=== PATIENT | male | born 1950 ===

== ENCOUNTER 2022-10-08 21:32 | Inpatient (IN) ==
[2022-10-09] MEDS ORDERED: Vancomycin 1,000 MG in NS 0.9% 250 ml 250 ML IVPB ONE (02:39)
[2022-10-09 03:00] LABS: Hematocrit 40.5 % (38-53); Hemoglobin 13.6 g/dL (13.2-16.3); Mean Corpuscular Hemoglobin 29.9 pg (27-33); Mean Corpuscular Hgb Conc 33.6 g/dL (31-36); Mean Platelet Volume 9.6 fL (7.5-11.2); Platelet Count 464 10^3/uL (150-450); Red Blood Count 4.55 10^6/uL (4.06-5.63); Red Cell Distribution Width 19.1 % (12-17); White Blood Count 16.1 10^3/uL (3.6-10.2)
[2022-10-09] MEDS ORDERED: Vancomycin per Pharmacy 1 EA NOTE FOLLOW UP SCH (03:00)
[2022-10-09] MEDS ORDERED: Dextrose 50% Syringe 50 ml 25 GM/50 ML SYRINGE IV PUSH PRN (03:10)
[2022-10-09] MEDS ORDERED: Heparin DRIP 25,000 UNITS BAG 25,000 UNITS/500 ML BAG IV SCH ×2 (03:15→14:30)
[2022-10-09 03:18] LABS: Albumin 3.2 g/dL (3.2-5.2); Albumin/Globulin Ratio 1.5 (1-3); Calcium 8.6 mg/dL (8.6-10.3); Creatinine, Serum 0.91 mg/dL (0.67-1.17); Globulin 2.1 g/dL (2-4); Magnesium 1.5 mg/dL (1.9-2.7); Potassium 3.7 mmol/L (3.5-5.0); Total Bilirubin 0.5 mg/dL (0.2-1.0); Total Protein 5.3 g/dL (6.4-8.9); eGFR CKD-EPI 89.5 (>60)
[2022-10-09 03:24] LABS: Activated Partial Thrombo Time 36.8 seconds (26.0-38.0); INR 1.44 (0.88-1.18)
[2022-10-09 03:33] LABS: ABS Basophils 0.1 10^3/uL (0.0-0.1); ABS Eosinophils 0.8 10^3/uL (0.0-0.5); ABS Lymphocytes 0.8 10^3/uL (1.0-4.8); ABS Monocytes 0.8 10^3/uL (0.0-1.1); ABS Neutrophils 13.6 10^3/uL (1.5-7.6); Anisocytosis 1+; Eosinophil % 5.1 %; Lymphocyte % 4.7 %; Platelet Morphology Large
[2022-10-09] MEDS: cefTRIAXone 1 gm/50 mL D5W 1 GM/50 ML BAG IV SCH (03:58)
[2022-10-09] MEDS ORDERED: Heparin 5000 UNITS/ML 1 mL VIAL IV SCH ×2 (04:00→15:00)
[2022-10-09] MEDS ORDERED: Vancomycin 1500 MG IV - x ONCE IVPB ONE (04:00)
[2022-10-09 04:16] LABS: C Reactive Protein 28.52 mg/L (<8.01)
[2022-10-09] MEDS ORDERED: Magnesium Sulfate IV 3 GM in NS 0.9% 100 ml BAG 100 ML IVPB ONE (05:44)
[2022-10-09] MEDS: DULoxetine DR 60 mg CAP PO SCH (10:47)
[2022-10-09] MEDS: Vancomycin 1,250 MG in NS 0.9% 250 ml 250 ML IVPB SCH (13:50)
[2022-10-09 15:12] LABS: Hematocrit 41.2 % (38-53); Hemoglobin 13.8 g/dL (13.2-16.3); Mean Corpuscular Hgb Conc 33.5 g/dL (31-36); Mean Corpuscular Volume 89.5 fL (80-97); Mean Platelet Volume 9.3 fL (7.5-11.2); Platelet Count 492 10^3/uL (150-450); Red Cell Distribution Width 19.9 % (12-17); White Blood Count 16.7 10^3/uL (3.6-10.2)
[2022-10-09 15:29] LABS: Creatinine, Serum 0.72 mg/dL (0.67-1.17); eGFR CKD-EPI 97.1 (>60)
[2022-10-09 16:18] LABS: ABS Eosinophils 0.8 10^3/uL (0.0-0.5); ABS Lymphocytes 0.7 10^3/uL (1.0-4.8); ABS Monocytes 1.1 10^3/uL (0.0-1.1); ABS Neutrophils 14.2 10^3/uL (1.5-7.6); Eosinophil % 4.9 %; Lymphocyte % 3.9 %
[2022-10-10] MEDS: Vancomycin 1,250 MG in NS 0.9% 250 ml 250 ML IVPB SCH ×2 (00:01→14:28)
[2022-10-10] MEDS: cefTRIAXone 1 gm/50 mL D5W 1 GM/50 ML BAG IV SCH (02:00)
[2022-10-10 03:23] LABS: Hematocrit 41.2 % (38-53); Hemoglobin 13.9 g/dL (13.2-16.3); Mean Corpuscular Hemoglobin 30.2 pg (27-33); Mean Corpuscular Hgb Conc 33.7 g/dL (31-36); Mean Corpuscular Volume 89.8 fL (80-97); Mean Platelet Volume 9.5 fL (7.5-11.2); Platelet Count 510 10^3/uL (150-450); Red Blood Count 4.58 10^6/uL (4.06-5.63); Red Cell Distribution Width 19.5 % (12-17); White Blood Count 18.7 10^3/uL (3.6-10.2)
[2022-10-10 03:50] LABS: ABS Basophils 0.2 10^3/uL (0.0-0.1); ABS Eosinophils 0.8 10^3/uL (0.0-0.5); ABS Lymphocytes 0.9 10^3/uL (1.0-4.8); ABS Monocytes 1.1 10^3/uL (0.0-1.1); ABS Neutrophils 15.7 10^3/uL (1.5-7.6); Eosinophil % 4.5 %; Lymphocyte % 4.8 %
[2022-10-10] MEDS: DULoxetine DR 60 mg CAP PO SCH (09:32)
[2022-10-10] MEDS ORDERED: Vancomycin Trough Check NOTE FOLLOW UP ONE (12:30)
[2022-10-10] MEDS ORDERED: Heparin 5000 UNITS/ML 1 mL VIAL IV SCH (17:15)
[2022-10-10] MEDS ORDERED: Heparin DRIP 25,000 UNITS BAG 25,000 UNITS/500 ML BAG IV SCH (17:45)
[2022-10-10 18:17] LABS: Activated Partial Thrombo Time 36.4 seconds (26.0-38.0); INR 1.42 (0.88-1.18)
[2022-10-11] MEDS: Vancomycin 1,250 MG in NS 0.9% 250 ml 250 ML IVPB SCH ×2 (00:08→12:41)
[2022-10-11 06:56] LABS: Hematocrit 40.7 % (38-53); Hemoglobin 13.5 g/dL (13.2-16.3); Mean Corpuscular Hemoglobin 30.3 pg (27-33); Mean Corpuscular Hgb Conc 33.2 g/dL (31-36); Mean Corpuscular Volume 91.2 fL (80-97); Mean Platelet Volume 9.5 fL (7.5-11.2); Platelet Count 481 10^3/uL (150-450); Red Blood Count 4.46 10^6/uL (4.06-5.63); Red Cell Distribution Width 19.5 % (12-17)
[2022-10-11 07:14] LABS: Creatinine, Serum 0.84 mg/dL (0.67-1.17); eGFR CKD-EPI 92.7 (>60)
[2022-10-11 08:32] LABS: RBC Morphology Normal (Normal)
[2022-10-11 08:33] LABS: ABS Basophils 0.4 10^3/uL (0.0-0.1); ABS Eosinophils 0.7 10^3/uL (0.0-0.5); ABS Lymphocytes 1.1 10^3/uL (1.0-4.8); ABS Monocytes 1.1 10^3/uL (0.0-1.1); ABS Neutrophils 13.7 10^3/uL (1.5-7.6); ABS Nucleated RBC 0.01 10^3/ul; Eosinophil % 4.4 %; Lymphocyte % 6.5 %; Nucleated Red Blood Cells % 0.1 /100 WBC (0.0-0.4)
[2022-10-11] MEDS: DULoxetine DR 60 mg CAP PO SCH (09:20)
[2022-10-11] MEDS ORDERED: ROPIVACAINE 5 MG/ML 30 ML BTL (0.5%) ONE (13:49)
[2022-10-11] MEDS ORDERED: ceFAZolin 2 GM in NS PREMIX 2 GM/100 ML BAG IVPB ONE (18:09)
[2022-10-11] MEDS ORDERED: Propofol 10 MG/ML 20 ML BTL ONE (19:12)
[2022-10-11] MEDS ORDERED: Phenylephrine 40 mcg/mL 10mL (400mcg) SYRINGE ONE (19:23)
[2022-10-11] MEDS ORDERED: fentaNYL 100 mcg/2 ml 50 MCG/ML VIAL ONE (19:29)
[2022-10-11] MEDS ORDERED: Ondansetron 4 mg VIAL 2 MG/ML 2 ml VIAL ONE (19:31)
[2022-10-11] MEDS ORDERED: Dexamethasone IV 4 MG/ML VIAL 1 ml VIAL ONE (19:31)
[2022-10-11] MEDS ORDERED: Acetaminophen IV 1 GM/100ML 1,000 MG/100 ML BAG IV ONE (19:36)
[2022-10-11] MEDS ORDERED: Sodium Chloride 0.9% 10 ML ONE (20:10)
[2022-10-12] MEDS: Vancomycin 1,250 MG in NS 0.9% 250 ml 250 ML IVPB SCH ×2 (02:16→13:22)
[2022-10-12] MEDS: Acetaminophen IV 1 GM/100ML 1,000 MG/100 ML BAG IV SCH ×3 (03:08→18:34)
[2022-10-12 06:35] LABS: Hematocrit 39.7 % (38-53); Hemoglobin 13.2 g/dL (13.2-16.3); Mean Corpuscular Hemoglobin 30.1 pg (27-33); Mean Corpuscular Hgb Conc 33.3 g/dL (31-36); Mean Corpuscular Volume 90.2 fL (80-97); Mean Platelet Volume 9.5 fL (7.5-11.2); Platelet Count 541 10^3/uL (150-450); Red Cell Distribution Width 18.9 % (12-17); White Blood Count 22.4 10^3/uL (3.6-10.2)
[2022-10-12 06:49] LABS: Calcium 8.4 mg/dL (8.6-10.3); Creatinine, Serum 0.7 mg/dL (0.67-1.17); Potassium 4.3 mmol/L (3.5-5.0); eGFR CKD-EPI 97.9 (>60)
[2022-10-12 07:56] LABS: Anisocytosis 1+
[2022-10-12 07:57] LABS: ABS Basophils 0.3 10^3/uL (0.0-0.1); ABS Lymphocytes 0.6 10^3/uL (1.0-4.8); ABS Monocytes 0.7 10^3/uL (0.0-1.1); ABS Neutrophils 20.8 10^3/uL (1.5-7.6); ABS Nucleated RBC 0.01 10^3/ul; Burr Cells 1+; Eosinophil % 0.1 %; Lymphocyte % 2.8 %; Nucleated Red Blood Cells % 0.1 /100 WBC (0.0-0.4); Platelet Morphology Large
[2022-10-12] MEDS: DULoxetine DR 60 mg CAP PO SCH (09:19)
[2022-10-12] MEDS ORDERED: Vancomycin Trough Check NOTE FOLLOW UP ONE (12:30)
[2022-10-13] MEDS: Vancomycin 1,250 MG in NS 0.9% 250 ml 250 ML IVPB SCH ×2 (00:21→13:21)
[2022-10-13] MEDS: Acetaminophen IV 1 GM/100ML 1,000 MG/100 ML BAG IV SCH ×3 (04:05→18:40)
[2022-10-13 05:36] LABS: Hematocrit 38.4 % (38-53); Hemoglobin 12.8 g/dL (13.2-16.3); Mean Corpuscular Hemoglobin 29.6 pg (27-33); Mean Corpuscular Hgb Conc 33.3 g/dL (31-36); Mean Corpuscular Volume 89.1 fL (80-97); Mean Platelet Volume 9.7 fL (7.5-11.2); Platelet Count 530 10^3/uL (150-450); Red Blood Count 4.31 10^6/uL (4.06-5.63); White Blood Count 22.6 10^3/uL (3.6-10.2)
[2022-10-13 05:57] LABS: Calcium 8.5 mg/dL (8.6-10.3); Creatinine, Serum 0.83 mg/dL (0.67-1.17); Potassium 4.1 mmol/L (3.5-5.0)
[2022-10-13 06:03] LABS: ABS Basophils 0.4 10^3/uL (0.0-0.1); ABS Eosinophils 0.6 10^3/uL (0.0-0.5); ABS Lymphocytes 1.2 10^3/uL (1.0-4.8); ABS Monocytes 1.5 10^3/uL (0.0-1.1); ABS Nucleated RBC 0.01 10^3/ul; Anisocytosis 3+; Eosinophil % 2.7 %; Lymphocyte % 5.3 %; Nucleated Red Blood Cells % 0.1 /100 WBC (0.0-0.4)
[2022-10-13] MEDS: DULoxetine DR 60 mg CAP PO SCH (09:18)
[2022-10-13] MEDS: Morphine 2 MG/ML SYRINGE IV PRN (10:36)
[2022-10-14] MEDS: Vancomycin 1,250 MG in NS 0.9% 250 ml 250 ML IVPB SCH ×2 (00:53→13:13)
[2022-10-14] MEDS: Acetaminophen IV 1 GM/100ML 1,000 MG/100 ML BAG IV SCH (04:00)
[2022-10-14] MEDS: DULoxetine DR 60 mg CAP PO SCH (08:34)
[2022-10-14] MEDS: Morphine 2 MG/ML SYRINGE IV PRN ×2 (13:09→21:40)
[2022-10-15] MEDS: Vancomycin 1,250 MG in NS 0.9% 250 ml 250 ML IVPB SCH (00:49)
[2022-10-15] MEDS: Morphine 2 MG/ML SYRINGE IV PRN (04:45)
[2022-10-15 05:21] LABS: Hematocrit 35.2 % (38-53); Hemoglobin 11.8 g/dL (13.2-16.3); Mean Corpuscular Hemoglobin 30.2 pg (27-33); Mean Corpuscular Hgb Conc 33.4 g/dL (31-36); Mean Corpuscular Volume 90.4 fL (80-97); Mean Platelet Volume 9.6 fL (7.5-11.2); Platelet Count 486 10^3/uL (150-450); Red Cell Distribution Width 18.6 % (12-17); White Blood Count 18.1 10^3/uL (3.6-10.2)
[2022-10-15 05:37] LABS: Calcium 8.1 mg/dL (8.6-10.3); Creatinine, Serum 0.58 mg/dL (0.67-1.17); Potassium 3.7 mmol/L (3.5-5.0); eGFR CKD-EPI 103.6 (>60)
[2022-10-15 05:59] LABS: ABS Basophils 0.3 10^3/uL (0.0-0.1); ABS Eosinophils 0.8 10^3/uL (0.0-0.5); ABS Lymphocytes 1.3 10^3/uL (1.0-4.8); ABS Neutrophils 14.8 10^3/uL (1.5-7.6); ABS Nucleated RBC 0.02 10^3/ul; Eosinophil % 4.6 %; Nucleated Red Blood Cells % 0.1 /100 WBC (0.0-0.4)
[2022-10-15] MEDS ORDERED: Senna TAB 8.6 mg TAB PO ONE (07:28)
[2022-10-15] MEDS ORDERED: Magnesium Hydroxide LIQ 30 ML UDC PO ONE (07:28)
[2022-10-15 08:06] LABS: Creatinine, Serum 0.61 mg/dL (0.67-1.17); eGFR CKD-EPI 102.1 (>60)
[2022-10-15] MEDS: DULoxetine DR 60 mg CAP PO SCH (09:34)
[2022-10-15] MEDS ORDERED: Vancomycin Trough Check NOTE FOLLOW UP ONE (12:30)
[2022-10-15] MEDS: Vancomycin 1,750 MG in NS 0.9% 500 ml BAG 500 ML IVPB SCH (14:21)
[2022-10-16] MEDS: Vancomycin 1,750 MG in NS 0.9% 500 ml BAG 500 ML IVPB SCH ×2 (00:30→12:13)
[2022-10-16] MEDS ORDERED: Psyllium PAK PO PRN (07:40)
[2022-10-16] MEDS: DULoxetine DR 60 mg CAP PO SCH (09:09)
[2022-10-16] MEDS ORDERED: Magnesium Hydroxide LIQ 30 ML UDC PO ONE (09:44)
[2022-10-16] MEDS ORDERED: Lactulose 30 ml UDC PO ONE (09:45)
[2022-10-16 20:07] VITALS: BP 112/57
[2022-10-17] MEDS ORDERED: Vancomycin Trough Check NOTE FOLLOW UP ONE (12:30)
== END 2022-10-16 19:40 | disposition home or self-care (01) | DRG 464 ==
LOC: MEDTELE 10-09 01:02 → SUATTDRO 10-09 01:02 → MEDTELE 10-09 03:07
PROVIDERS: ADMIT Hospitalist; ATTEND Internal Medicine